=== PATIENT | male | born 1990 ===

== ENCOUNTER 2016-08-11 10:05 | Emergency (ER) | payer OTHER ==
--- NOTE | 2016-08-11 12:05 | Emergency Department Report ---
Chief Complaint: Rectal Pain Stated Complaint: BLOOD IN STOOL/RECTAL PAIN Time Seen by Provider: 08/11/16 12:03 - HPI History of Present Illness: 25-year-old male comes in for complaint of blood in stool 1 this morning complains of blood in stool times one approximate 5 days ago. Complains of recent constipation also complains of rectal pain approximately 1 week reports it "hurts to sit down." - Exam Vital Signs: Vital Signs 08/11/16 10:30 Temperature 98.3 F Pulse Rate 102 H Respiratory 18 Rate Blood Pressure 139/97 O2 Sat by Pulse 98 Oximetry Physical Exam: Is alert and oriented 3 no acute distress. Patient unable to sit down for the exam. MSE screening note: Focused history and physical exam performed. Due to findings the following was ordered: Then evaluated with this provider he'll be seen in fast track. ED Disposition for MSE Condition: Stable
--- NOTE | 2016-08-11 15:14 | Emergency Department Report ---
Chief Complaint: Rectal Pain Stated Complaint: BLOOD IN STOOL/RECTAL PAIN Time Seen by Provider: 08/11/16 12:03 - HPI History of Present Illness: Patient presents with blood in his underwear starting this morning. He also states those blood in his underwear 5 days ago. He admits to constipation and rectal pain 1 week he has been taking ibuprofen for the pain. He denies urinary symptoms, abdominal pain, and no history of hemorrhoids. - ROS Review of Systems: All other systems unremarkable except documentation in HPI - Exam Vital Signs: Vital Signs 08/11/16 10:30 Temperature 98.3 F Pulse Rate 102 H Respiratory 18 Rate Blood Pressure 139/97 O2 Sat by Pulse 98 Oximetry Physical Exam: Gen: Male no apparent distress noted, ambulatory. Cardiovascular: Heart sounds present S1-S2, no murmur, gallop, edema or ectopy noted, 2+ pulses upper and lower extremities Respiratory: Chest symmetry with respirations, lungs clear to auscultate upper and lower lobes, respirations even and unlabored, no rales, rhonchi, crackles noted. Rectum: approx 2 in below gluteal cleft there are 2 pinpoint openings with purlulent discharge, there is also an opening approx 1 in below that with what appears to be fecal matter and odorous of feces, approx 1 in below that is anus. Abdomen: bowel sounds present, soft, nondistended, nontender, no rigidity, guarding or rebound tenderness Psych: AxOx3, answers questions appropriately, mood full range, affect normal, normal speech and tone. MSE screening note: Focused history and physical exam performed. Due to findings the following was ordered: ED Disposition for MSE Condition: Stable
[2016-08-11 16:33] LABS: Basophils % (Auto) 0.3 % (0.0-1.8); Eosinophils % (Auto) 2.5 % (0.0-4.3); Hematocrit 41.7 % (35.5-45.6); Hemoglobin 13.7 gm/dl (11.8-15.2); Mean Corpuscular HGB Conc 33 % (32-34); Mean Corpuscular Hemoglobin 26 pg (28-32); Mean Corpuscular Volume 81 fl (84-94); Platelet Count 319 K/mm3 (140-440); Red Blood Count 5.18 M/mm3 (3.65-5.03); Red Cell Distribution Width 12.9 % (13.2-15.2); White Blood Count 10.6 K/mm3 (4.5-11.0)
[2016-08-11 16:42] LABS: INR 1.05 (0.87-1.13)
[2016-08-11 16:43] LABS: Partial Thromboplastin Time 32.9 Sec. (24.2-36.6)
[2016-08-11] MEDS ORDERED: TORADOL IM ONE (17:00)
[2016-08-11 17:14] LABS: Alanine Aminotransferase 25 units/L (7-56); Albumin 3.8 g/dL (3.9-5); Alkaline Phosphatase 82 units/L (35-129); BUN/Creatinine Ratio 11.25; Bilirubin,Total 0.4 mg/dL (0.1-1.2); Blood Urea Nitrogen 9 mg/dL (9-20); Carbon Dioxide 28 mmol/L (22-30); Chloride 100.8 mmol/L (98-107); Glucose 90 mg/dL (75-100); Potassium 3.9 mmol/L (3.6-5.0); Sodium 140 mmol/L (137-145); Total Protein 7.5 g/dL (6.3-8.2)
[2016-08-11 17:16] LABS: Anion Gap 15 mmol/L
--- NOTE | 2016-08-11 17:27 | Emergency Department Report ---
ED General Adult HPI - General Chief complaint: Rectal Pain Stated complaint: BLOOD IN STOOL/RECTAL PAIN Time Seen by Provider: 08/11/16 12:03 Source: patient Mode of arrival: Ambulatory Limitations: No Limitations - History of Present Illness Initial comments: 25-year-old male with history presented today because of anal pain. Patient states that he has been having the pain for the last week and was noticing getting worse despite taking a significant amount of Motrin. He states that now it is becoming very painful firm stool in that there is been some blood in his stool associated with it. He has no associated fevers, chills, nausea, vomiting, abdominal pain. Does not never had episodes like this in the past. He does have family members with history of anorectal abscesses. He denies any lightheadedness, palpitations or generalized weakness. - Related Data Previous Rx's Medication Instructions Recorded Last Taken Type Ibuprofen [Motrin] 600 mg PO Q8H PRN #16 tablet 08/11/16 Unknown Rx Allergies Allergy/AdvReac Type Severity Reaction Status Date / Time No Known Allergies Allergy Unverified 08/11/16 10:34 ED Review of Systems ROS: Stated complaint: BLOOD IN STOOL/RECTAL PAIN Other details as noted in HPI ED Past Medical Hx - Past Medical History Previous Medical History?: No - Surgical History Past Surgical History?: No - Medications Home Medications: Home Medications Medication Instructions Recorded Confirmed Last Taken Type Ibuprofen [Motrin] 600 mg PO Q8H PRN #16 tablet 08/11/16 Unknown Rx ED Physical Exam - General Limitations: No Limitations General appearance: alert - Eye Eye exam: Present: normal appearance - ENT ENT exam: Present: normal exam - Respiratory Respiratory exam: Present: normal lung sounds bilaterally - Cardiovascular Cardiovascular Exam: Present: normal rhythm, tachycardia - GI/Abdominal GI/Abdominal exam: Present: soft. Absent: distended, tenderness - Rectal Rectal exam: Present: other (0.5 cm wound, midline vertical that is draining spontaneous pus, able to exude pus on palpation with some induration surrounding , no erythema surrounding minimal tenderness in the surrounding tissue) ED Course Vital Signs 08/11/16 10:30 Temperature 98.3 F Pulse Rate 102 H Respiratory 18 Rate Blood Pressure 139/97 O2 Sat by Pulse 98 Oximetry - I & D Buttocks Type of Procedure: Simple Site: midline above anus Progress: Patient already has a spontaneously draining abscess, I placed significant pressure to try to open up pockets of pus, was able to drain about 10 mL of pus mixed with blood, patient's symptoms significantly improved afterwards. Will not place any packing as there is already a spontaneous drainage from the site. ED Medical Decision Making - Lab Data Result diagrams: 08/11/16 16:14 08/11/16 16:14 - Medical Decision Making IV, labs, CT abdomen and pelvis with IV and rectal contrast had been pre- ordered to look for fistula formation CT does not reveal any signs of fistula, suggests a midline abscess Able to remove a significant amount of pus from the wound Should symptoms significantly improved We will send home on pain medication with surgery follow-up Antibiotics are unnecessary given that it is a young and healthy patient with an abscess without signs of surrounding cellulitis Critical care attestation.: If time is entered above; I have spent that time in minutes in the direct care of this critically ill patient, excluding procedure time. ED Disposition Clinical Impression: Pilonidal abscess Disposition: DISCHARGED TO HOME OR SELFCARE Is pt being admited?: No Does the pt Need Aspirin: No Condition: Stable Instructions: Abscess (ED), Sitz Bath (GEN) Additional Instructions: Please follow-up with your primary care doctor in 3 days. Please also call with a surgeon in the next 1-2 weeks. Please use sitz baths as we had discussed 2 times a day. Return to the emergency room if you have worsening pain, fever or any new symptoms. Prescriptions: Ibuprofen [Motrin] 600 mg PO Q8H PRN #16 tablet PRN Reason: Pain
[2016-08-11] MEDS ORDERED: NACL ONE (17:52)
[2016-08-11 18:49] LABS: Bilirubin,Urine NEG (Negative); Blood,Urine NEG (Negative); Ketones,Urine NEG (Negative); Leukocyte Esterase,Urine NEG (Negative); Mucus,Urine 1+ /HPF; Nitrite,Urine NEG (Negative); Protein,Urine <15 mg/dL mg/dL (Negative); Urobilinogen,Urine < 2.0 mg/dL (<2.0)
--- NOTE | 2016-08-11 18:59 | Cat Scan Report ---
FINAL REPORT EXAM: CT ABDOMEN PELVIS W CON HISTORY: abscess patient may have a fistula in his rectal area. PW: 08/11/2016 TECHNIQUE: CT examination of the ABDOMEN after IV contrast CT examination of the PELVIS after IV contrast Rectal tube in place possibly for contrast per rectum PRIORS: None. FINDINGS: Normal-appearing liver, gallbladder, adrenals, pancreas, and spleen. Intact normal caliber abdominal aorta and IVC. Normal-appearing kidneys and proximal ureters. The exam is limited from a paucity of anatomical intraperitoneal fat to separate adjacent organs and structures. The mid and distal ureters are largely obscured by adjacent soft tissues. Intestinal loops are also difficult to independently assess. Normal-appearing stomach and duodenum. No definite small bowel distention in the abdomen and pelvis. No pelvic free fluid. Normal-appearing urinary bladder, prostate, and seminal vesicles. No definite focal abnormality visualized in the contrast enhance rectum. No evidence of mural thickening in the rectum. No evidence of contrast leak external to the rectum to suggest fistula. The presacral fat is intact. In the superficial soft tissue dorsal to the coccyx, there is a small abnormal fluid level collection with thick, slightly irregular, IV contrast enhancing wall. This may reflect abscess although it contains no air bubble. Approximate size of the fluid density is 1.7 x 1.0 x 2.5 cm. There is nonspecific fat stranding in the adjacent soft tissues are may reflect edema, inflammation, or infection. Normal-appearing sigmoid colon. No gross ascites, free air, or colonic distention. Normal-appearing cecum, terminal ileum, and appendix. IMPRESSION: Small fluid collection posterior to the coccyx is suspicious for abscess. Adjacent fat stranding may be edema, inflammation, and/or infection. No definite evidence of fistulous communication with the rectum on this exam
[2016-08-11 19:50] VITALS: BP 120/82
== END 2016-08-11 19:51 | disposition home or self-care (01) ==
LOC: ED 10:05
DX: L05.01 Pilonidal cyst with abscess (principal)
CPT/HCPCS: 36415; 74177; 80053; 81001; 85025; 85610; 85730; 96372; 99284; J1885; Q9967